=== PATIENT | male | born 1985 | race Two or more races ===

== ENCOUNTER 2021-03-20 15:49 | Emergency (ER) | payer OTHER ==
[~2021-03-20] VITALS: Ht 167.6 cm; Wt 68.0 kg
[2021-03-20] MEDS ORDERED: IV NORMAL SALINE 1000 ML BAG IV ONE (16:15)
[2021-03-20 16:17] LABS: HEMATOCRIT 36.4 % (36.7-47.1); MEAN CORPUSCULAR VOLUME 87.4 fL (73.0-96.2); PLATELET COUNT (AUTO) 289 K/uL (152-348)
[2021-03-20 16:23] LABS: CARBON DIOXIDE 27 mmol/L (21-32); CHLORIDE 107 mmol/L (98-107); CREATININE 0.8 mg/dL (0.6-1.3); GLUCOSE 116 mg/dL (74-106); UREA NITROGEN, BLOOD 12 mg/dL (7-18)
[2021-03-20 16:29] LABS: ALANINE AMINOTRANSFERASE 22 U/L (16-63); ALKALINE PHOSPHATASE 94 U/L (50-136); ASPARTATE AMINOTRANSFERASE 21 U/L (15-37); BILIRUBIN,DIRECT 0.1 mg/dL (0.0-0.2); BILIRUBIN,TOTAL 0.2 mg/dL (0.2-1.0); TOTAL PROTEIN, SERUM 5.7 g/dL (6.4-8.2)
[2021-03-20 16:30] LABS: ACETAMINOPHEN < 2.0 ug/mL (10-30)
[2021-03-20 16:32] LABS: ETHANOL < 3 MG/DL (0-0)
--- NOTE | 2021-03-20 16:58 | NUR ---
Pt resting in gurney with eyes closed and no s/s of acute distress noted at this time.
[2021-03-20] MEDS ORDERED: POTASSIUM CHLORIDE 20 MEQ TAB.PRT.SR PO ONE (17:00)
[2021-03-20] MEDS ORDERED: POTASSIUM CHLORIDE 20 MEQ POWDER PACKET ONE (17:33)
--- NOTE | 2021-03-20 18:32 | NUR ---
Pt sleeping with NAD noted.
--- NOTE | 2021-03-20 19:08 | NUR ---
Recieved report from ALLIE Underwood
--- NOTE | 2021-03-21 02:15 | NUR ---
Pt. discharged. Refused to sign paperwork or leave. Pt. yelling, threatening to harm staff and other patients. Security called to deescalate. Pt. continued behavior. JOSE called.
--- NOTE | 2021-03-21 02:20 | NUR ---
Patient eloped from facility. ER physician notified.
== END 2021-03-21 02:30 | disposition left against medical advice (07) ==
LOC: ER 15:49 → EDBD 15:49 → ER 03-21 02:30
DX: F19.129 Other psychoactive substance abuse with intoxication, unspecified (principal); D64.9 Anemia, unspecified; E87.6 Hypokalemia
CPT/HCPCS: 36415; 85025; 93005; A4663; G0480; J7030